=== PATIENT | female | born 1935 | race Hispanic/Latino ===

== ENCOUNTER → 2017-09-13 | Outpatient (CLI) | payer MEDICARE ==
[~2017-09-13] MED LIST: CHOL400C9 PO; EZET10 PO; HYDR-2132 PO; NISO8.5T3 PO; PANT40TA25 PO; RIVA10TA PO; XALA2.5OS OU
== END | disposition home or self-care (01) ==
LOC: RAH 09:13
PROVIDERS: ATTEND Family Medicine
DX: Z12.31 Encounter for screening mammogram for malignant neoplasm of breast (principal)
CPT/HCPCS: 77067

== ENCOUNTER → 2017-09-25 | Outpatient (CLI) | payer MEDICARE ==
[~2017-09-25] MED LIST changes: +REGADENOSON 0.4 MG/5 ML PF SYG IVP SCH
== END | disposition home or self-care (01) ==
LOC: SHCH 08:04
PROVIDERS: ATTEND Internal Medicine Cardiovascular Disease
DX: R94.31 Abnormal electrocardiogram [ECG] [EKG] (principal); I10 Essential (primary) hypertension
CPT/HCPCS: 78452; 93017; 96374; A9500 ×2; J2785

== ENCOUNTER → 2017-09-26 | Outpatient (CLI) | payer MEDICARE ==
[~2017-09-26] MED LIST changes: -REGADENOSON 0.4 MG/5 ML PF SYG IVP SCH
== END | disposition home or self-care (01) ==
LOC: SHCH 14:12
PROVIDERS: ATTEND Internal Medicine Cardiovascular Disease
DX: I10 Essential (primary) hypertension (principal)
CPT/HCPCS: 93306

== ENCOUNTER 2024-09-24 06:57 | Emergency (ER) | payer MEDICARE ==
[~2024-09-24] VITALS: Ht 160 cm; Wt 76.7 kg
[~2024-09-24 06:57] MED LIST changes: -EZET10 PO; +EZET10TA81 PO; -PANT40TA25 PO; +PANT40TA54 PO
[2024-09-24 06:59] VITALS: BP 152/68; PULSE 82; RESP 20; TEMP 97.5
--- NOTE | 2024-09-24 07:42 | ERN ---
General Chief Complaint: Mechanical Fall Stated Complaint: C/O LACERATION TO LEFT ARM, ABRASIONS TO LEFT KNEE Time Seen by MD: 07:05 Source: patient History of Present Illness Initial Comments In his is a an 88-year-old female coming in to be evaluated after she fell down earlier today. Per patient she slipped falling on her knees and landing on her left forearm. When she fell forward she scraped her forearm causing him to have a laceration. Patient states she did not lose consciousness or hit her head. Allergies: Coded Allergies: Penicillins (Unverified Allergy, Severe, RASH, 02/04/14) Home Meds Active Scripts Rivaroxaban (Xarelto) 10 Mg Tablet, 10 MG PO Q24H, #15 TAB Prov:NINA BELL MD 04/04/14 Hydrocodone Bit/Acetaminophen ([place] 5/325Mg) 1 Tab Tablet, 1-2 TAB PO q 6 hr PRN for NEEDED FOR PAIN 6-7, #90 TAB 0 Refills Prov:NINA BELL MD 04/04/14 Reported Medications Cholecalciferol (Vitamin D3) (Vitamin D3) 400 Unit Capsule, 400 UNIT PO AM, CAP 04/01/14 Latanoprost (Xalatan 0.005% Ophth Soln) 20 Drop/Ml Opsol, 0 OU HS, DROP 04/01/14 Pantoprazole Sodium (Pantoprazole Sodium) 40 Mg Tablet.dr, 40 MG PO AM, TAB 04/01/14 Ezetimibe (Zetia) 10 Mg Tablet, 10 MG PO DAILY, TAB 04/01/14 Nisoldipine (Nisoldipine) 8.5 Mg Tab.er.24h, 8.5 MG PO AM, TAB 04/01/14 Past Medical History Past Medical History: High Cholesterol, Hypertension Past Surgical History: Cholecystectomy, Other Surgical History Other: BILATERAL KNEE REPLACEMENTS ROS Dictation CONSTITUTIONAL: No chills, no fever, no weakness, no diaphoresis, no malaise. HEAD/FACE: No signs of trauma. EENT: No eye pain, no blurred vision, no tearing, no double vision, no ear pain, no ear discharge, no nose pain, no nasal congestion, no throat pain, no throat swelling, no mouth pain. RESPIRATORY: No cough, no orthopnea, no SOB, no stridor, no wheezing. CARDIOVASCULAR: No chest pain, no edema, no palpitations, no syncope. GASTROINTESTINAL/ABDOMINAL: No abdominal pain, no constipation, no diarrhea, no nausea, no vomiting. GENITOURINARY: No abnormal discharge, no dysuria, no frequent urination, no hematuria. No complaints of pain in the genitals. MUSCULOSKELETAL: No back pain, no gout, no joint pain, no joint swelling, no muscle pain, no muscle stiffness, no neck pain. INTEGUMENTARY: No change in color, no change in hair/nails, no dryness, left forearm lesion, no lumps, no rash. NEUROLOGICAL/PSYCH: No anxiety, not depressed, no emotional problem, no headache, no numbness, no pre-existing deficit, no history of seizures, no tremors, no weakness. HEMATOLOGIC/LYMPHATIC: Not anemic, no history of blood clots, no apparent bleeding, no bruising, glands not swollen. All Systems Negative, Except as Noted. Physical Exam Physical Exam Dictation VITAL SIGNS: Reviewed. GENERAL APPEARANCE: Alert, oriented x3, no acute distress, obese. HEAD AND FACE: Non-traumatic. EYES: PERRL, pink conjunctivas, eyelid no trauma, anterior chamber clear. EARS: Pinnas intact and no signs of trauma or erythema. Ear canals clear and no discharge. TMs no erythema. NOSE: No discharge, no bleeding. OROPHARYNX: Mouth normal, teeth no caries, tongue pink. Pharynx clear, no erythema. Tonsils no exudates, no abscesses noted. Mucous membrane moist. NECK: Supple, non-tender, no thyromegaly, no masses, no JVD, no bruits. BREAST: Deferred. CHEST: No tenderness, no crepitus, no paradoxical movement, no retractions. LUNGS: Clear, well-ventilated, symmetric, no rales, no wheezing, no rhonchi, no stridor, good breath sounds bilaterally. HEART: Regular rate, regular rhythm, no murmur, no gallops. VASCULAR: No peripheral edema. ABDOMEN: Soft, positive bowel sounds, nondistended, no guarding, nontender, no rebound, no masses no hepatomegaly, no splenomegaly, no Mosley's sign, no hernias. RECTAL: Deferred. GENITAL: Deferred. NEUROLOGICAL: Normal speech, gross motor function intact, gross sensory function intact. MUSCULOSKELETAL: Neck nontender, full range of motion, back nontender, full range of motion. EXTREMITIES: Nontender, full range of motion. SKIN: Color pink, dry, no turgor, no rash, left forearm laceration 6 cm irregular LYMPHATICS: Deferred. Results Laboratory and Microbiology Labs Reviewed?: Yes EKG/XRAY/US/CT/MRI X-RAY Comment [address] [place] [id number] IMAGING REPORT Signed PATIENT: BERTHA GROVES MR#: [id number] : 1935 SEX: F AGE: 88 LOCATION: [facility] ORDER 1 STATUS: [facility] ER REPORT#: [id number] SERVICE 0 REASON: fall ORDERING PHYSICIAN: HUYEN VALERIO MD PROCEDURE: LUMB 2 3VW - LUMBAR SPINE 2-3VWS Exam Type: LUMBAR SPINE 2-3VWS Clinical Information: fall Comparison: None Findings: Exam of the lumbosacral spine demonstrates no evidence of fracture or subluxation. There are moderate spondylitic changes. The facet joints show moderate degenerative changes. The alignment of the spine is normal. The disc spaces are intact. Bone mineralization is normal. Impression: Spondylitic changes and degenerative changes of the apophyseal joints as noted. DICTATED BY: EBONI VILLAFUERTE MD DATE: 09/24/24947 ELECTRONICALLY SIGNED BY: EBONI VILLAFUERTE MD DATE: 09/24/24950 [address] [id number] IMAGING REPORT Signed PATIENT: BERTHA GROVES MR#: [id number] : 1935 SEX: F AGE: 88 LOCATION: [facility] ORDER 1 STATUS: [facility] REPORT#: [id number] SERVICE 0 REASON: fall ORDERING PHYSICIAN: HUYEN VALERIO MD PROCEDURE: FORARML - FOREARM 2VWS LT Exam Type: FOREARM 2VWS LT Clinical Information: fall Comparison: None Findings: The bone examination is unremarkable. No fractures or dislocations are seen. No radiopaque foreign bodies are noted. Soft tissues are preserved. IMPRESSION: Normal examination. DICTATED BY: EBONI VILLAFUERTE MD DATE: 09/24/24947 ELECTRONICALLY SIGNED BY: EBONI VILLAFUERTE MD DATE: 09/24/24950 KNEE X-RAY BILATERAL-NAD MDM MDM: DIFFERENTIAL DIAGNOSIS: FALL, LEFT ARM LACERATION, RATIONALE: TESTS CONSIDERED AND ORDERED SECONDARY TO SHARED DECISION MAKING INCLUDE: PREVIOUS OUTSIDE RECORDS REVIEWED: OLD ER VISITS. RISK OF COMPLICATION AND/OR MORBIDITY OR MORTALITY OF PATIENT MANAGEMENT: NONE MEDICATIONS-PER MEDICATION RECONCILIATION PATIENT IS A 88-YEAR-OLD FEMALE COMING IN TO BE EVALUATED AFTER SHE HAD A SLIP AND FALL EARLIER TODAY. SHE STATES THAT SHE TRIPPED COMING IN THE STAIRS. SHE STATES THAT SHE LANDED ON HER LEFT FOREARM CAUSING A LACERATION OR LEFT FOREARM. LACERATION WAS REPAIRED. PATIENT DID NOT LOSE CONSCIOUSNESS. IMAGING STUDIES WERE NEGATIVE FOR ACUTE FINDINGS. LACERATION WAS REPAIRED PATIENT WILL BE DISCHARGED IN STABLE CONDITION. ED Course Orders Procedure Category Date Status Time Knee 3 Vw Bilateral RAD 09/24/24 Taken 07:31 Lumbar Spine 2-3vws RAD 09/24/24 Resulted 07:31 Forearm 2vws Lt RAD 09/24/24 Resulted 07:31 Diph,Pertuss(Acell),Tet PHA 09/24/24 Complete Vac/Pf (Tdap) 08:00 Lidocaine Hcl 1% 20ml PHA 09/24/24 Complete Vial (Lidocaine Hc 07:32 Dermabond (Dermabond) PHA 09/24/24 Complete 09:06 Current Medications Medications (Trade) Dose Ordered Sig/Radha Route PRN Reason Start Time Stop Time Status Last Admin Dose Admin Diphtheria/ Tetanus/Acell Pertussis (Tdap) 0.5 ml ONCE ONCE IM 09/24/24 08:00 09/24/24 08:01 DC 09/24/24 10:11 Lidocaine HCl (Lidocaine HCl 1% 20ml Vial) 20 ml ONCE STAT INJ 09/24/24 07:32 09/24/24 07:36 DC 09/24/24 09:39 Octyl Cyanoacrylate (Dermabond) 1 each STK-MED ONCE TP 09/24/24 09:06 09/24/24 09:06 DC 09/24/24 09:40 Vital Signs Date Time Temp Pulse Resp B/P (MAP) Pulse Ox O2 Delivery O2 Flow Rate FiO2 09/24/24 06:59 97.5 82 20 152/68 98 Room Air Laceration/Wound Repair Laceration/Wound Repair : Wound Location: upper extremity Wound Length (cm): 6 Wound's Depth, Shape: superficial Wound Explored: clean Irrigated w/ Saline (ccs): 100 Betadine Prep?: Yes Anesthesia: 1% Lidocaine Volume Anesthetic (ccs): 8 Wound Debrided: minimal Wound Repaired With: sutures Suture Size/Type: 4:0, 3:0 Number of Sutures: 16 Layer Closure?: Yes Deep Layer Suture Size/Type: 4:0 Number Deep Layer Sutures: 16 Sterile Dressing Applied?: Yes DX & DISP Disposition: Discharge Departure Impression: Primary Impression: Fall Additional Impression: Laceration of left forearm Condition: Stable Scripts Sulfamethoxazole/Trimethoprim (Bactrim 400-80 mg Tablet) 400 Mg-80 Mg Tablet 1 TAB PO BID for 7 Days, #14 TAB 0 Refills Prov: HUYEN VALERIO MD 09/24/24 Additional Instructions: FOLLOW-UP WITH PRIMARY CARE PROVIDER IN 1 TO 2 DAYS. TAKE MEDICATIONS DIRECTED HERE IN THE EMERGENCY ROOM. OKAY TO CONTINUE HOME MEDICATIONS UNLESS OTHERWISE DISCUSSED DURING YOUR VISIT IN THE EMERGENCY ROOM TODAY. RETURN TO YOUR NEAREST EMERGENCY ROOM IF SYMPTOMS WORSEN OR IF THERE IS NO IMPROVEMENT. CALL 911 IF YOU NEED IMMEDIATE ASSISTANCE. TAKE TYLENOL [id number] NEEDED AND IF NO CONTRAINDICATIONS ARE PRESENT. INCREASE ORAL HYDRATION. A WOUND CULTURE OR URINE CULTURE WAS ORDERED HERE IN THE EMERGENCY ROOM DEPARTMENT PLEASE FOLLOW-UP WITH PRIMARY CARE PROVIDER AND ADVISE THEM TO GET REPEAT PORTS FROM OUR FACILITY. IF YOU HAD ANY PRINCESS WRAP/SPLINTS THAT WERE APPLIED HERE, PLEASE DO NOT REMOVE THEM UNTIL YOU SEE YOUR PRIMARY CARE OR SPECIALTY. REFERRALS: Referrals: BERNA GILBERT DO (PCP) Time of Disposition: 11:01 HUYEN VALREIO MD Sep 24, 2024 07:42
--- NOTE | 2024-09-24 09:16 | NUR ---
WOUND REPAIR: DR VALERIO REPAIRED THE LACERATION/SKIN AVULSION TO THE L FOREARM (USING STERILE TECHNIQUE). HE PERFORMED WOUND CARE. THEN USED 4-0 CHROMIC GUT FOR THE INSIDE AND USED 16 3-0 ETHILON SUTURES TO THE OUTSIDE. DERMABOND WAS USED TO A PORTION OF SKIN TEAR THAT WAS NOT ABLE TO BE SUTURED. THE REST WAS COVERED W/XEROFORM GAUZE, ABD PAD AND COBAN. WOUND CARE INSTRUCTIONS: INSTRUCTIONS WERE PROVIDED TO BOTH PT AND HER DAUGHTER ON HOW TO CLEAN/TREAT WOUND AND PREP FOR FOLLOW UP W/HER PCP ON MONDAY. SHE IS TO REMOVED CURRENT DRESSING AND KEEP DRY FOR 24-48HRS. ONCE REMOVED, SHE IS TO KEEP THE WOUND CLEAN AND DRY AND COVER ONLY WHEN SHE LEAVES THE HOME. OTHERWISE F/U W/PCP AND HAVE SUTURES REMOVED IN 7-10 DAYS.
[2024-09-24] MEDS: LIDOCAINE HCL 1% 20 ML VIAL INJ STA (09:39)
[2024-09-24] MEDS: OCTYL 2-CYANOACRYLATE 1 EACH TP ONE (09:40)
--- NOTE | 2024-09-24 09:51 | HMCIMG ---
Exam Type: LUMBAR SPINE 2-3VWS Clinical Information: fall Comparison: None Findings: Exam of the lumbosacral spine demonstrates no evidence of fracture or subluxation. There are moderate spondylitic changes. The facet joints show moderate degenerative changes. The alignment of the spine is normal. The disc spaces are intact. Bone mineralization is normal. Impression: Spondylitic changes and degenerative changes of the apophyseal joints as noted.
--- NOTE | 2024-09-24 09:51 | HMCIMG ---
Exam Type: FOREARM 2VWS LT Clinical Information: fall Comparison: None Findings: The bone examination is unremarkable. No fractures or dislocations are seen. No radiopaque foreign bodies are noted. Soft tissues are preserved. IMPRESSION: Normal examination.
[2024-09-24] MEDS: DIPH,PERTUSS(ACELL),TET VAC/PF 0.5 ML VIAL IM ONE (10:11)
--- NOTE | 2024-09-24 10:29 | NUR ---
T-DAP VACCINE GIVEN
--- NOTE | 2024-09-24 10:57 | HMCIMG ---
Exam Type: KNEE 3 VW BILATERAL Clinical Information: fall Comparison: None Findings: Routine views of the knee are without evidence of fracture, dislocation, arthritic, or inflammatory change. There is status post bilateral knee replacement with adequate visualization and alignment of bony and hardware elements. No complications are seen. There are vascular calcifications. The joint space is well maintained and there is no effusion. IMPRESSION: Status post bilateral knee replacement.
[2024-09-24] MEDS ORDERED: SULF1TAB41 PO (11:01)
== END 2024-09-24 12:15 | disposition home or self-care (01) ==
LOC: EDH 06:57
DX: S51.812A Laceration without foreign body of left forearm, initial encounter (principal); E78.00 Pure hypercholesterolemia, unspecified; I10 Essential (primary) hypertension; Z88.0 Allergy status to penicillin; Z90.49 Acquired absence of other specified parts of digestive tract; Z96.653 Presence of artificial knee joint, bilateral; W01.10XA Fall on same level from slipping, tripping and stumbling with subsequent striking against unspecified object, initial encounter; Y93.89 Activity, other specified; Y92.89 Other specified places as the place of occurrence of the external cause; Y99.8 Other external cause status
CPT/HCPCS: 12002; 72100; 73090; 90471; 90715; 99284